=== PATIENT | male | born 1975 | race Caucasian/White ===

== ENCOUNTER → 2019-01-06 | Outpatient (REF) | payer BC ==
[2019-01-06 12:29] LABS: BASO % 0.3 % (0.0-1.0); EOS # 0.1 10^3/uL (0.0-0.50); EOS % 2.2 % (0.0-3.0); HEMATOCRIT 45.8 % (42.0-52.0); HEMOGLOBIN 15.7 g/dl (13.5-17.5); LYMPH # 2.2 10^3/uL (1.5-4.5); LYMPH % 34.4 % (24.0-44.0); MEAN CORPUSCULAR HEMOGLOBIN 30.1 pg (27.0-33.0); MEAN CORPUSCULAR HGB CONC 34.3 g/dl (32.0-36.5); MEAN CORPUSCULAR VOLUME 87.7 fl (80.0-96.0); MONO # 0.6 10^3/uL (0.0-0.8); MONO % 8.9 % (0.0-5.0); NEUTROPHILS # 3.4 10^3/uL (1.8-7.7); NEUTROPHILS % 53.6 % (36.0-66.0); PLATELET COUNT, AUTOMATED 150 10^3/uL (150-450); RED BLOOD COUNT 5.22 10^6/uL (4.30-6.10); WHITE BLOOD COUNT 6.3 10^3/uL (4.0-10.0)
[2019-01-06 12:57] LABS: ALBUMIN 4.1 GM/DL (3.2-5.2); ALT/SGPT 45 U/L (12-78); BILIRUBIN,TOTAL 1.1 MG/DL (0.2-1.0); BLOOD UREA NITROGEN 13 MG/DL (7-18); CALCIUM LEVEL 9.2 MG/DL (8.5-10.1); CARBON DIOXIDE LEVEL 28 MEQ/L (21-32); CHLORIDE LEVEL 106 MEQ/L (98-107); CHOLESTEROL LEVEL 233 MG/DL (<200); CHOLESTEROL RISK RATIO 6.297 (<5); CREATININE FOR GFR 0.86 MG/DL (0.70-1.30); GLOMERULAR FILTRATION RATE > 60.0 (>60); GLUCOSE, FASTING 86 MG/DL (70-100); HDL CHOLESTEROL 37 MG/DL (>40); LDL CHOLESTEROL 156 MG/DL (<100); NON-HDL-C 196 MG/DL; POTASSIUM SERUM 4.5 MEQ/L (3.5-5.1); SODIUM LEVEL 140 MEQ/L (136-145); TOTAL PROTEIN 7.6 GM/DL (6.4-8.2); TRIGLYCERIDES LEVEL 200 MG/DL (<150)
== END ==
LOC: M SFHCLERA 10:08
PROVIDERS: ATTEND Nurse Practitioner Family
DX: Z13.220 Encounter for screening for lipoid disorders (principal)

== ENCOUNTER → 2023-09-04 | Outpatient (CLI) | payer BC | LOC: M PLAIMG 08:56 | PROVIDERS: ATTEND Physician Assistant | DX: M54.2 Cervicalgia (principal) ==

== ENCOUNTER → 2024-03-07 | Outpatient (CLI) | payer BC | LOC: M RAD 03-04 07:26 | PROVIDERS: ATTEND Family Medicine | DX: M47.812 Spondylosis without myelopathy or radiculopathy, cervical region (principal) ==

== ENCOUNTER → 2024-06-29 | Outpatient (REF) | payer BC ==
[2024-06-29 19:17] LABS: BASO % 0.3 % (0.0-1.0); EOS # 0.1 10^3/uL (0.0-0.5); HEMATOCRIT 40.9 % (42.0-52.0); HEMOGLOBIN 13.8 g/dl (13.5-17.5); LYMPH # 1.8 10^3/uL (1.5-5.0); LYMPH % 25.1 % (24.0-44.0); MEAN CORPUSCULAR HEMOGLOBIN 29.2 pg (27.0-33.0); MEAN CORPUSCULAR HGB CONC 33.7 g/dl (32.0-36.5); MEAN CORPUSCULAR VOLUME 86.7 fl (80.0-96.0); MONO # 0.5 10^3/uL (0.0-0.8); MONO % 7.2 % (2.0-8.0); NEUTROPHILS # 4.9 10^3/uL (1.5-8.5); NEUTROPHILS % 66.3 % (36.0-66.0); PLATELET COUNT, AUTOMATED 198 10^3/uL (150-450); RED BLOOD COUNT 4.72 10^6/uL (4.30-6.10); WHITE BLOOD COUNT 7.3 10^3/uL (4.0-10.0)
[2024-06-29 19:28] LABS: HEMOGLOBIN A1c 5.4 % (4.0-6.0)
[2024-06-29 19:47] LABS: ALKALINE PHOSPHATASE 30 U/L (40-129); ALT/SGPT 25 U/L (7.0-40); AST/SGOT 17 U/L (<34); BILIRUBIN,TOTAL 0.8 MG/DL (0.3-1.2); BLOOD UREA NITROGEN 16 MG/DL (9-23); CALCIUM LEVEL 9.2 MG/DL (8.5-10.1); CARBON DIOXIDE LEVEL 26 MMOL/L (20-31); CHLORIDE LEVEL 104 MMOL/L (98-107); CHOLESTEROL LEVEL 138 MG/DL (<200); CHOLESTEROL RISK RATIO 5.22 (<5); CREATININE FOR GFR 0.91 MG/DL (0.70-1.30); GLOMERULAR FILTRATION RATE > 60.0 (>60); GLUCOSE, FASTING 109 MG/DL (60-100); HDL CHOLESTEROL 26.4 MG/DL (>40); NON-HDL-C 111.6 MG/DL; POTASSIUM SERUM 3.8 MMOL/L (3.5-5.1); SODIUM LEVEL 140 MMOL/L (136-145); TOTAL PROTEIN 7.4 G/DL (5.7-8.2); TRIGLYCERIDES LEVEL 188 MG/DL (<150)
[2024-06-29 19:49] LABS: TOTAL 25(OH) VITAMIN D 21.7 NG/ML (20.0-100.0)
== END ==
LOC: M SFHCLERA 16:20
DX: I10 Essential (primary) hypertension (principal); E55.9 Vitamin D deficiency, unspecified; E78.2 Mixed hyperlipidemia; Z76.89 Persons encountering health services in other specified circumstances

== ENCOUNTER → 2025-05-05 | Outpatient (REF) | payer BC ==
[2025-05-05 17:37] LABS: APPEARANCE, URINE CLEAR (CLEAR); BACTERIA, URINE AUTO NEGATIVE (NEGATIVE); BILIRUBIN, URINE AUTO NEGATIVE (NEGATIVE); BLOOD, URINE BLOOD NEGATIVE (NEGATIVE); GLUCOSE, URINE (UA) AUTO NEGATIVE (NEGATIVE); KETONE, URINE AUTO NEGATIVE (NEGATIVE); LEUKOCYTE ESTERASE, URINE AUTO NEGATIVE (NEGATIVE); MUCUS, URINE SMALL (NEGATIVE); NITRITE, URINE AUTO NEGATIVE (NEGATIVE); PROTEIN, URINE AUTO NEGATIVE (NEGATIVE); RBC, URINE AUTO 0 /HPF (0-3); SPECIFIC GRAVITY URINE AUTO 1.023 (1.002-1.035); SQUAMOUS EPITHELIAL CELL UR AU 0 /HPF (0-6); UROBILINOGEN, URINE AUTO 0.2 mg/dL (0.0-2.0); WBC, URINE AUTO 0 /HPF (0-3)
[2025-05-05 19:53] LABS: ALT/SGPT 38 U/L (7.0-40); AST/SGOT 26 U/L (<34); CALCIUM LEVEL 8.7 MG/DL (8.5-10.1); CARBON DIOXIDE LEVEL 26 MMOL/L (20-31); CHLORIDE LEVEL 108 MMOL/L (98-107); CREATININE FOR GFR 0.94 MG/DL (0.70-1.30); GLOMERULAR FILTRATION RATE > 90.0 (>56); POTASSIUM SERUM 4.1 MMOL/L (3.5-5.1); SODIUM LEVEL 144 MMOL/L (136-145)
[2025-05-05 20:03] LABS: BASO # 0.0 10^3/uL (0.0-0.2); BASO % 0.4 % (0.0-1.0); EOS # 0.1 10^3/uL (0.0-0.5); EOS % 1.5 % (0.0-3.0); LYMPH # 2.1 10^3/uL (1.5-5.0); LYMPH % 37.4 % (24.0-44.0); MONO # 0.5 10^3/uL (0.0-0.8); MONO % 9.3 % (2.0-8.0); NEUTROPHILS # 2.8 10^3/uL (1.5-8.5); NEUTROPHILS % 51.0 % (36.0-66.0); PLATELET COUNT, AUTOMATED 161 10^3/uL (150-450)
[2025-05-05 20:10] LABS: ESTIMATED AVERAGE GLUCOSE 108.0 MG/DL (60-110)
== END ==
LOC: M SFHCLERA 08:16
PROVIDERS: ATTEND Internal Medicine
DX: I10 Essential (primary) hypertension (principal)